=== PATIENT | male | born 1950 | race Caucasian/White ===

== ENCOUNTER 2016-07-27 20:06 | Emergency (ER) | payer OTHER ==
[~2016-07-27] VITALS: Ht 177.8 cm; Wt 89.7 kg
[~2016-07-27 20:06] MED LIST: ATIVAN1 MG PO; ATIVAN2 MG PO; CARBIDOPA-LEVO1 EA16 PO; CARBIDOPA/LEVO1 EACH PO; COUMADIN1 MG PO; COUMADIN5 MG PO; DAILY VALUE1 EACH PO; DOCUSATE SODIU100 MG PO; DUONEB 2.5-0.5 M3 ML PEP; EAC; FLOMAX0.4 MG PO; FOLIC ACID1 MG PO; HYDROCHLOROTH12.5 M3 PO; KEFLEX500 MG PO; LEVAQUIN500 MG PO; LEVOTHROID100 MCG; LEVOTHYROXINE100 MCG PO; LEVOTHYROXINE150 MCG PO; LIBRIUM25 MG PO; LISINOPRIL10 MG PO; LORAZEPAM2 MG PO; LOVENOX100 MG/1 M SC; MEN'S MULTI-VI1 EACH PO; MILK OF MAGNESI10 ML PO; MULTIVITAMIN1 EAC2 PO; NERVE TONIC PO; NON-ASPIRIN EX500 MG; PERCOCET 5/31 TABLET PO; ROXICODONE5 MG PO; SENNA8.6 MG PO; SERTRALINE HCL100 MG PO; SINEMET 25-1001 EACH PO; STALEVO 200 TA1 EACH PO; STOOL SOFTENER100 M1 PO; SYNTHROID150 MCG PO; TAMSULOSIN HCL0.4 MG PO; VENLAFAXINE HCL75 MG PO; VIBRAMYCIN100 MG PO; WARFARIN SODIU2.5 MG PO; WARFARIN SODIU7.5 MG PO; WARFARIN SODIUM5 MG PO; ZESTORETIC 20-1 EAC1 PO; ZOFRAN4 MG PO; ZOLOFT100 MG PO; ZYVOX600 MG PO
[2016-07-27 23:29] LABS: HEMATOCRIT 45.5 % (38.0-50.0); MCH 31.4 PG (29.0-34.0); MCHC 34.1 G/DL (30.0-36.0); MCV 92.3 FL (86-99); MEAN PLAT.VOLUME 10.8 uM^3 (9.0-12.4); PLATELET COUNT 115 K/uL (156-360); RBC DIS.WIDTH-CV 14.6 % (11.8-14.6); RBC DIS.WIDTH-SD 47.4 % (39-53); RED BLOOD COUNT 4.93 M/uL (4.00-5.50); WHITE BLOOD COUNT 7.5 K/uL (4.1-10.2)
[2016-07-27 23:42] LABS: CHLORIDE 105 mEq/L (99-109); POTASSIUM 4.4 mEq/L (3.7-5.4); SODIUM 140 mEq/L (136-147)
[2016-07-27 23:45] LABS: GLUCOSE 94 mg/dL (70-99)
[2016-07-27 23:46] LABS: ANION GAP 9 MEQ/L (2-14)
[2016-07-27 23:47] LABS: TOTAL BILIRUBIN 0.7 mg/dL (0.0-1.0)
[2016-07-27 23:48] LABS: ALKALINE PHOSPHATASE 92 IU/L (3-129); SERUM ETHYL ALCOHOL < 10 mg/dL
[2016-07-27 23:49] LABS: GFR ESTIMATE (CALCULATED) > 59 mL/min/
[2016-07-27 23:50] LABS: UREA NITROGEN (BUN) 18 mg/dL (9-23)
[2016-07-28 00:24] LABS: ADD MIUA? NO; BILIRUBIN NEGATIVE; BLOOD NEGATIVE; COLOR YELLOW ((YELLOW)); GLUCOSE (STRIP) NEGATIVE; KETONES TRACE; LEUKOCYTES NEGATIVE; NITRITE NEGATIVE; PROTEIN (STRIP) NEGATIVE; UCUL ADDED? NO; UROBILINOGEN 0.2 MG/DL (0.2-1.0)
[2016-07-28 00:34] LABS: AMPHETAMINE NEGATIVE (500 ng/mL); COCAINE NEGATIVE (150 ng/mL); METHAMPHETAMINE NEGATIVE (500 ng/mL); OPIATES (MORPHINE) NEGATIVE (100 ng/mL); PHENCYCLIDINE NEGATIVE (25 ng/mL); THC CANNABINOIDS NEGATIVE (50 ng/mL)
[2016-07-28 00:35] LABS: ADD MEDTOX COMMENT Y; BARBITURATES NEGATIVE (200 ng/mL); BENZODIAZEPINES PRESUMPTIVE POSITIVE (150 ng/mL); INTERNAL CONTROLS VALID? YES; METHADONE NEGATIVE (200 ng/mL); OXYCODONE NEGATIVE (100 ng/mL); PROPOXYPHENE NEGATIVE (300 ng/mL); TRICYCLIC ANTIDEPRESSANTS NEGATIVE (300 ng/mL)
[2016-07-28 01:33] VITALS: BP 129/90
[2016-07-28 02:32] LABS: BENZODIAZEPINES, URINE SCREEN POSITIVE (200 ng/mL)
== END 2016-07-28 01:34 | disposition home or self-care (01) ==
LOC: EME 20:06
PROVIDERS: Emergency Medicine
DX: F32.9 Major depressive disorder, single episode, unspecified (principal); F43.23 Adjustment disorder with mixed anxiety and depressed mood; G47.00 Insomnia, unspecified; I10 Essential (primary) hypertension; E89.0 Postprocedural hypothyroidism; Z85.850 Personal history of malignant neoplasm of thyroid; G20 Parkinson's disease; Z79.01 Long term (current) use of anticoagulants; F17.200 Nicotine dependence, unspecified, uncomplicated
CPT/HCPCS: 80053; 81003; 84999; 85027; 90839; 99281; 99284; G0480

== ENCOUNTER 2016-11-29 11:21 | Emergency (ER) | payer OTHER ==
[~2016-11-29] VITALS: Ht 185.4 cm; Wt 92.1 kg
[2016-11-29] MEDS ORDERED: VALTREX1000 MG PO (12:23)
[2016-11-29 12:24] VITALS: BP 146/85
[2016-11-29] MEDS ORDERED: PERCOCET 5/31 TABLET PO (12:26)
== END 2016-11-29 12:40 | disposition home or self-care (01) ==
LOC: EME 11:21
DX: B02.9 Zoster without complications (principal); F32.9 Major depressive disorder, single episode, unspecified; I10 Essential (primary) hypertension; F41.9 Anxiety disorder, unspecified; E03.9 Hypothyroidism, unspecified; G20 Parkinson's disease; F17.200 Nicotine dependence, unspecified, uncomplicated
CPT/HCPCS: 99281; 99284

== ENCOUNTER 2017-02-15 23:55 | Inpatient (IN) | payer OTHER ==
[~2017-02-15] VITALS: Ht 185.4 cm; Wt 87.0 kg
[~2017-02-15 23:55] MED LIST changes: +VALTREX1000 MG PO
[2017-02-16 01:23] LABS: EOSINOPHIL (%) 1.1 % (0-5); EOSINOPHIL COUNT 0.1 K/uL (0-0.3); HEMATOCRIT 44.5 % (38.0-50.0); IMMATURE GRANULOCYTE (%) 0.6 % (0.0-0.7); IMMATURE GRANULOCYTE COUNT 0.1 K/uL; INSTRUMENT ABS NEUTROPHIL CT 6.2 K/uL; LYMPHOCYTE COUNT 1.3 K/uL (1.0-2.8); MCHC 33.5 G/DL (30.0-36.0); MCV 92.7 FL (86-99); MEAN PLAT.VOLUME 10.2 uM^3 (9.0-12.4); MONOCYTE (%) 6.6 % (3-12); MONOCYTE COUNT 0.5 K/uL (0-0.8); NEUTROPHIL (%) 76.2 % (45-76); NEUTROPHIL COUNT 6.2 K/uL (1.8-6.4); PLATELET COUNT 130 K/uL (156-360); RBC DIS.WIDTH-CV 13.6 % (11.8-14.6); RBC DIS.WIDTH-SD 46.1 % (39-53); WHITE BLOOD COUNT 8.2 K/uL (4.1-10.2)
[2017-02-16 01:43] LABS: TROP-I INTERPRETATION NEGATIVE; TROPONIN-I < 0.01 ng/mL (0.0-0.30)
[2017-02-16 01:56] LABS: CHLORIDE 105 mEq/L (99-109); POTASSIUM 4.4 mEq/L (3.7-5.4); SODIUM 139 mEq/L (136-147)
[2017-02-16 01:58] LABS: GLUCOSE 80 mg/dL (70-99)
[2017-02-16 01:59] LABS: ANION GAP 10 MEQ/L (2-14)
[2017-02-16 02:02] LABS: GFR ESTIMATE (CALCULATED) > 59 mL/min/
[2017-02-16 02:03] LABS: UREA NITROGEN (BUN) 12 mg/dL (9-23)
[2017-02-16 02:36] LABS: ADD MIUA? NO; BILIRUBIN NEGATIVE; BLOOD NEGATIVE; COLOR YELLOW ((YELLOW)); GLUCOSE (STRIP) NEGATIVE; KETONES NEGATIVE; LEUKOCYTES NEGATIVE; NITRITE NEGATIVE; PROTEIN (STRIP) NEGATIVE; SPECIFIC GRAVITY 1.011 (1.000-1.030); UROBILINOGEN 0.2 MG/DL (0.2-1.0)
[2017-02-16 03:11] LABS: CREATINE KINASE 233 IU/L (1-294)
[2017-02-16 04:29] LABS: SERUM ETHYL ALCOHOL < 10 mg/dL
[2017-02-16] MEDS ORDERED: LORAZEPAM2 MG PO (04:59)
[2017-02-16] MEDS ORDERED: DITROPAN5 MG PO (05:00)
[2017-02-16] MEDS ORDERED: LEVOTHYROXINE200 MC1 PO (05:00)
[2017-02-16 06:06] VITALS: BP 117/71
[2017-02-16 07:15] VITALS: BP 122/78
[2017-02-16 16:16] VITALS: BP 119/72
[2017-02-16 19:45] VITALS: BP 110/64
[2017-02-16 23:54] VITALS: BP 108/66
[2017-02-17 03:24] VITALS: BP 104/62
[2017-02-17 05:46] LABS: HEMATOCRIT 40.7 % (38.0-50.0); MCH 31.7 PG (29.0-34.0); MCHC 34.4 G/DL (30.0-36.0); MCV 92.3 FL (86-99); MEAN PLAT.VOLUME 10.4 uM^3 (9.0-12.4); PLATELET COUNT 124 K/uL (156-360); RBC DIS.WIDTH-CV 13.4 % (11.8-14.6); RBC DIS.WIDTH-SD 46.4 % (39-53); RED BLOOD COUNT 4.41 M/uL (4.00-5.50); WHITE BLOOD COUNT 5.9 K/uL (4.1-10.2)
[2017-02-17 06:16] LABS: ALKALINE PHOSPHATASE 62 IU/L (3-129); ANION GAP 10 MEQ/L (2-14); CHLORIDE 107 MEQ/L (99-109); GFR ESTIMATE (CALCULATED) > 59 mL/min/; GLUCOSE 92 mg/dL (70-99); MAGNESIUM 1.8 mg/dl (1.3-2.7); POTASSIUM 3.9 MEQ/L (3.7-5.4); SAMPLE HEMOLYSIS CHECK 0; SAMPLE ICTERIC CHECK 0; SAMPLE LIPEMIA CHECK 0; SODIUM 143 MEQ/L (136-147); TOTAL BILIRUBIN 1.1 MG/DL (0.0-1.0); UREA NITROGEN (BUN) 11 mg/dL (9-23)
[2017-02-17 07:51] VITALS: BP 119/72
[2017-02-17 12:46] VITALS: BP 109/76
[2017-02-17 15:51] VITALS: BP 130/60
[2017-02-17 19:46] VITALS: BP 137/72
[2017-02-17 23:45] VITALS: BP 130/73
[2017-02-18 04:08] VITALS: BP 133/71
[2017-02-18 08:47] VITALS: BP 124/61
[2017-02-18 09:46] LABS: HEMATOCRIT 39.9 % (38.0-50.0); MCHC 33.8 G/DL (30.0-36.0); MCV 91.5 FL (86-99); MEAN PLAT.VOLUME 10.2 uM^3 (9.0-12.4); PLATELET COUNT 118 K/uL (156-360); RED BLOOD COUNT 4.36 M/uL (4.00-5.50); WHITE BLOOD COUNT 9.1 K/uL (4.1-10.2)
[2017-02-18 10:29] LABS: ANION GAP 13 MEQ/L (2-14); CHLORIDE 104 MEQ/L (99-109); GFR ESTIMATE (CALCULATED) > 59 mL/min/; GLUCOSE 87 mg/dL (70-99); POTASSIUM 3.9 MEQ/L (3.7-5.4); SAMPLE HEMOLYSIS CHECK 0; SAMPLE ICTERIC CHECK 0; SAMPLE LIPEMIA CHECK 0; SODIUM 141 MEQ/L (136-147); UREA NITROGEN (BUN) 14 mg/dL (9-23)
[2017-02-18 12:09] VITALS: BP 99/54
[2017-02-18 16:35] VITALS: BP 92/59
[2017-02-18 20:08] VITALS: BP 97/58
[2017-02-18 23:47] VITALS: BP 112/73
[2017-02-19 03:52] VITALS: BP 129/74
[2017-02-19 08:10] VITALS: BP 100/59
[2017-02-19 11:51] VITALS: BP 104/62
[2017-02-19 16:04] VITALS: BP 104/62
[2017-02-19 23:48] VITALS: BP 149/79
[2017-02-20 08:26] VITALS: BP 101/68
[2017-02-20 09:25] LABS: HEMATOCRIT 36.9 % (38.0-50.0); MCH 32.3 PG (29.0-34.0); MCHC 35.2 G/DL (30.0-36.0); MCV 91.8 FL (86-99); MEAN PLAT.VOLUME 10.1 uM^3 (9.0-12.4); PLATELET COUNT 132 K/uL (156-360); RBC DIS.WIDTH-CV 13.2 % (11.8-14.6); RBC DIS.WIDTH-SD 44.8 % (39-53); RED BLOOD COUNT 4.02 M/uL (4.00-5.50); WHITE BLOOD COUNT 5.6 K/uL (4.1-10.2)
[2017-02-20 09:58] LABS: ANION GAP 11 MEQ/L (2-14); CHLORIDE 106 MEQ/L (99-109); GFR ESTIMATE (CALCULATED) > 59 mL/min/; POTASSIUM 3.6 MEQ/L (3.7-5.4); SAMPLE HEMOLYSIS CHECK 0; SAMPLE ICTERIC CHECK 0; SAMPLE LIPEMIA CHECK 0; SODIUM 139 MEQ/L (136-147); UREA NITROGEN (BUN) 16 mg/dL (9-23)
[2017-02-20 10:02] LABS: GLUCOSE 144 mg/dL (70-99)
[2017-02-20 16:34] VITALS: BP 110/70
[2017-02-20 23:11] VITALS: BP 130/85
[2017-02-21 07:54] VITALS: BP 109/68
[2017-02-21] MEDS ORDERED: CARBIDOPA/LEVO1 EACH PO (12:08)
[2017-02-21] MEDS ORDERED: SYNTHROID150 MCG PO (12:09)
== END 2017-02-21 15:11 | disposition home health service (06) | DRG 948 ==
LOC: EME → EDBD 23:55 → EME 23:55 → EDOF 02-16 03:19 → 5WEST 02-16 03:19 → ENRESERV 02-16 03:20 → 5WEST 02-16 05:33 → 5SOUTH 02-16 11:29 → ENRESERV 02-16 11:35 → 5SOUTH 02-16 16:04
PROVIDERS: Emergency Medicine; Hospitalist; Internal Medicine
PROC: HZ2ZZZZ Detoxification Services for Substance Abuse Treatment (ICD-10-PCS; principal; 2017-02-16)
DX: R41.0 Disorientation, unspecified (principal); T50.906A Underdosing of unspecified drugs, medicaments and biological substances, initial encounter; F10.239 Alcohol dependence with withdrawal, unspecified; G20 Parkinson's disease; B35.9 Dermatophytosis, unspecified; R47.81 Slurred speech; R42 Dizziness and giddiness; R13.10 Dysphagia, unspecified; R29.6 Repeated falls; T14.8 Other injury of unspecified body region; W57.XXXA Bitten or stung by nonvenomous insect and other nonvenomous arthropods, initial encounter; T76.01XA Adult neglect or abandonment, suspected, initial encounter; K70.9 Alcoholic liver disease, unspecified; I10 Essential (primary) hypertension; R32 Unspecified urinary incontinence; E03.9 Hypothyroidism, unspecified; F60.9 Personality disorder, unspecified; F32.9 Major depressive disorder, single episode, unspecified; F41.9 Anxiety disorder, unspecified; F17.210 Nicotine dependence, cigarettes, uncomplicated; Z66 Do not resuscitate; Z85.850 Personal history of malignant neoplasm of thyroid; Z86.711 Personal history of pulmonary embolism; Z87.442 Personal history of urinary calculi; Z91.81 History of falling
CPT/HCPCS: 70450; 71010; 71020; 80048; 80053; 81003; 82140; 82550; 83735; 84100; 84439; 84443; 84484; 85025; 85027; 92526 GN; 92610 GN; 93005; 97530 GO; 99281; 99285; G0480; G8978 GP CM; G8979 GP CL; G8987 GO CM; G8988 GO CL; J1644; J2060; J3411; J7030

== ENCOUNTER 2017-03-01 21:18 | Observation (INO) | payer OTHER ==
[~2017-03-01] VITALS: Ht 185.4 cm; Wt 83.8 kg
[~2017-03-01 21:18] MED LIST changes: +DITROPAN5 MG PO; +LEVOTHYROXINE200 MC1 PO
[2017-03-02 01:29] LABS: EOSINOPHIL (%) 1.9 % (0-5); EOSINOPHIL COUNT 0.2 K/uL (0-0.3); IMMATURE GRANULOCYTE (%) 1.8 % (0.0-0.7); IMMATURE GRANULOCYTE COUNT 0.1 K/uL; INSTRUMENT ABS NEUTROPHIL CT 5.5 K/uL; LYMPHOCYTE COUNT 1.6 K/uL (1.0-2.8); MCH 30.7 PG (29.0-34.0); MCHC 33.1 G/DL (30.0-36.0); MCV 92.8 FL (86-99); MEAN PLAT.VOLUME 9.5 uM^3 (9.0-12.4); MONOCYTE (%) 5.6 % (3-12); MONOCYTE COUNT 0.4 K/uL (0-0.8); NEUTROPHIL (%) 69.8 % (45-76); NEUTROPHIL COUNT 5.5 K/uL (1.8-6.4); RBC DIS.WIDTH-CV 13.2 % (11.8-14.6); RBC DIS.WIDTH-SD 44.8 % (39-53); RED BLOOD COUNT 3.88 M/uL (4.00-5.50); WHITE BLOOD COUNT 7.9 K/uL (4.1-10.2)
[2017-03-02 01:42] LABS: PLATELET COUNT 206 K/uL (156-360)
[2017-03-02 01:47] LABS: CHLORIDE 108 mEq/L (99-109); POTASSIUM 3.2 mEq/L (3.7-5.4); SODIUM 140 mEq/L (136-147)
[2017-03-02 01:48] LABS: ADD MIUA? YES; BILIRUBIN NEGATIVE; BLOOD MODERATE; COLOR YELLOW ((YELLOW)); GLUCOSE (STRIP) NEGATIVE; KETONES 5; LEUKOCYTES NEGATIVE; NITRITE NEGATIVE; PROTEIN (STRIP) NEGATIVE; SPECIFIC GRAVITY 1.019 (1.000-1.030); UROBILINOGEN 0.2 MG/DL (0.2-1.0)
[2017-03-02 01:49] LABS: GLUCOSE 85 mg/dL (70-99)
[2017-03-02 01:50] LABS: ANION GAP 9 MEQ/L (2-14)
[2017-03-02 01:51] LABS: TOTAL BILIRUBIN 0.4 mg/dL (0.0-1.0)
[2017-03-02 01:53] LABS: ALKALINE PHOSPHATASE 60 IU/L (3-129); GFR ESTIMATE (CALCULATED) > 59 mL/min/
[2017-03-02 01:54] LABS: UREA NITROGEN (BUN) 17 mg/dL (9-23)
[2017-03-02 01:55] LABS: BACTERIA RARE /HPF; CALCIUM OXALATE CRYSTALS 1+ /HPF; EPITHELIAL CELLS NONE SEEN /HPF; HYALINE CASTS 0-5 /LPF; MUCUS TRACE /LPF; RED BLOOD CELLS 0-5 /HPF (0-5); WHITE BLOOD CELLS 0-5 /HPF (0-5)
[2017-03-02 01:55] LABS: DIRECT BILIRUBIN 0.2 mg/dL (0.0-0.3)
[2017-03-02 01:56] LABS: CREATINE KINASE 24 IU/L (1-294); LIPASE 44 U/L (1.0-51.0); TOTAL CK 24 IU/L (1-294)
[2017-03-02 02:02] LABS: CK-MB 0.9 ng/mL (0.0-4.9)
[2017-03-02 06:55] VITALS: BP 136/77
[2017-03-02 07:22] VITALS: BP 136/77
[2017-03-02 09:18] LABS: RETICULOCYTE COUNT 1.7 % (0.5-1.8)
[2017-03-02] MEDS ORDERED: ADVIL200 MG PO (10:46)
[2017-03-02] MEDS ORDERED: DAILY VALUE1 EACH PO (10:46)
[2017-03-02] MEDS ORDERED: LO-DOSE ASPIRIN81 M1 PO (10:47)
[2017-03-02] MEDS ORDERED: ZESTRIL10 MG PO (10:50)
[2017-03-02 11:09] VITALS: BP 109/72
[2017-03-02 11:13] LABS: IRON 52 MCG/DL (35-150)
[2017-03-02 14:32] LABS: FERRITIN 419 NG/ML (22-322)
[2017-03-02 15:14] VITALS: BP 125/76
[2017-03-02 19:54] VITALS: BP 130/76
[2017-03-02 22:57] VITALS: BP 119/63
[2017-03-03 03:30] VITALS: BP 111/70
[2017-03-03 07:43] VITALS: BP 119/76
[2017-03-03 09:01] LABS: ADD MIUA? YES; BILIRUBIN NEGATIVE; BLOOD SMALL; COLOR YELLOW ((YELLOW)); GLUCOSE (STRIP) NEGATIVE; KETONES NEGATIVE; LEUKOCYTES NEGATIVE; NITRITE NEGATIVE; PROTEIN (STRIP) NEGATIVE; SPECIFIC GRAVITY 1.011 (1.000-1.030); UROBILINOGEN 0.2 MG/DL (0.2-1.0)
[2017-03-03 09:28] LABS: BACTERIA NONE SEEN /HPF; EPITHELIAL CELLS NONE SEEN /HPF; HYALINE CASTS 0-5 /LPF; MUCUS TRACE /LPF; RED BLOOD CELLS 0-5 /HPF (0-5); UCUL ADDED? NO; WHITE BLOOD CELLS 0-5 /HPF (0-5)
[2017-03-03] MEDS ORDERED: AMBIEN5 MG PO (16:22)
[2017-03-03] MEDS ORDERED: MOTRIN IB200 MG PO (16:23)
[2017-03-03] MEDS ORDERED: ASPIRIN81 M2 PO (16:23)
== END 2017-03-03 15:25 ==
LOC: EME 21:18 → 5EAST 03-02 06:13 → EDOF 03-02 06:13 → ENRESERV 03-02 06:14 → 5EAST 03-02 06:51
PROVIDERS: Emergency Medicine; Hospitalist
DX: G20 Parkinson's disease (principal); Z91.81 History of falling; D64.9 Anemia, unspecified; R27.9 Unspecified lack of coordination; F32.9 Major depressive disorder, single episode, unspecified; Z74.8 Other problems related to care provider dependency; E03.9 Hypothyroidism, unspecified; G47.00 Insomnia, unspecified; Z85.850 Personal history of malignant neoplasm of thyroid; Z87.442 Personal history of urinary calculi; E89.0 Postprocedural hypothyroidism
CPT/HCPCS: 70450; 71020; 80048; 80076; 81003; 82550; 82553; 82607; 82728; 82746; 83540; 83605; 83690; 84466; 85025; 85045; 87040; 87086; 97530 GP; 99281; 99285; G0378; G8978 GP CJ; G8979 GP CI; J1650; J1956; J7030

== ENCOUNTER 2017-03-03 14:40 | Inpatient (IN) | payer OTHER ==
[~2017-03-03 14:40] MED LIST changes: +ADVIL200 MG PO; +LO-DOSE ASPIRIN81 M1 PO; +ZESTRIL10 MG PO
[2017-03-03 15:35] VITALS: BP 129/77
[2017-03-03 15:36] VITALS: BP 129/77
[2017-03-03] MEDS ORDERED: AMBIEN5 MG PO (16:22)
[2017-03-03] MEDS ORDERED: MOTRIN IB200 MG PO (16:23)
[2017-03-03] MEDS ORDERED: ASPIRIN81 M2 PO (16:23)
[2017-03-04 07:38] VITALS: BP 141/64
[2017-03-04 16:05] VITALS: BP 117/59
[2017-03-05 07:45] VITALS: BP 104/57
[2017-03-05 16:12] VITALS: BP 102/62
[2017-03-06 07:20] VITALS: BP 114/66
[2017-03-06 15:29] VITALS: BP 109/71
[2017-03-07 07:48] VITALS: BP 98/55
[2017-03-07] MEDS ORDERED: ZOLOFT100 MG PO (08:58)
[2017-03-07] MEDS ORDERED: MIRTAZAPINE15 MG PO (08:58)
== END 2017-03-07 11:40 | disposition home or self-care (01) | DRG 885 ==
LOC: 1WEST 14:40 → ENRESERV 14:41 → 1WEST 15:29
DX: F33.1 Major depressive disorder, recurrent, moderate (principal); F60.9 Personality disorder, unspecified; G20 Parkinson's disease; R45.851 Suicidal ideations; E89.0 Postprocedural hypothyroidism; R29.6 Repeated falls; Z79.899 Other long term (current) drug therapy; Z85.850 Personal history of malignant neoplasm of thyroid; Z87.442 Personal history of urinary calculi
CPT/HCPCS: 97150 GO; 97165 GO

== ENCOUNTER 2017-09-20 03:04 | Emergency (ER) | payer OTHER ==
[~2017-09-20] VITALS: Ht 182.9 cm; Wt 91.1 kg
[~2017-09-20 03:04] MED LIST changes: +AMBIEN5 MG PO; +ASPIRIN81 M2 PO; +MIRTAZAPINE15 MG PO; +MOTRIN IB200 MG PO
[2017-09-20 06:01] VITALS: BP 107/69
== END 2017-09-20 06:02 | disposition home or self-care (01) ==
LOC: EME 03:04
DX: S01.311A Laceration without foreign body of right ear, initial encounter (principal); F10.129 Alcohol abuse with intoxication, unspecified; Y90.9 Presence of alcohol in blood, level not specified; M54.2 Cervicalgia; W18.30XA Fall on same level, unspecified, initial encounter; Z23 Encounter for immunization; G20 Parkinson's disease; G89.29 Other chronic pain; I10 Essential (primary) hypertension; Z79.82 Long term (current) use of aspirin; E03.9 Hypothyroidism, unspecified; F41.9 Anxiety disorder, unspecified; Z85.850 Personal history of malignant neoplasm of thyroid; F17.200 Nicotine dependence, unspecified, uncomplicated
CPT/HCPCS: 70450; 72125; 82948; 93005; 99281; 99285